=== PATIENT | male | born 1970 | race Caucasian/White ===

== ENCOUNTER 2018-05-10 22:56 | Emergency (ER) | payer OTHER ==
[~2018-05-10] VITALS: Ht 182.9 cm; Wt 90.7 kg
[2018-05-10 23:03] VITALS: BP 128/77
--- NOTE | 2018-05-10 23:55 | NUR ---
PT REFUSED ACI. PT AAXO4. NAD NOTED. AMBULATORY WITH STEADY GAIT.
[2018-05-10] MEDS: GUAIFENESIN/D-METHORPHAN HB 5 ML UDC PO ONE (23:56)
== END 2018-05-11 | disposition home or self-care (01) ==
LOC: EDBD → ER 23:10
DX: F10.129 Alcohol abuse with intoxication, unspecified (principal); R05 Cough; F31.9 Bipolar disorder, unspecified; F20.9 Schizophrenia, unspecified; Y90.9 Presence of alcohol in blood, level not specified
CPT/HCPCS: 71045-TC

== ENCOUNTER 2018-05-11 07:40 | Emergency (ER) | payer OTHER ==
[~2018-05-11] VITALS: Ht 175.3 cm; Wt 80.3 kg
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
--- NOTE | 2018-05-11 08:02 | NUR ---
POCT BLOOD SUGAR 89 FOOD TRAY CALLED FROM KITCH[facility]
--- NOTE | 2018-05-11 09:09 | NUR ---
PT REMAINS SOMBULENT UNABLE TO OPEN EYES BREATHING EVEN SATURATION 95% ON ROOM AIR VSS. WILL CONTINUE TO MONITOR
--- NOTE | 2018-05-11 09:54 | NUR ---
PT AWAKE SCREAMING UNABLE TO PULL PANTS DOWN TO URINATED PT HELPED WITH CLOTHING AND GIVEN URNAL. BREAKFAST AT BEDSIDE. PT INFORMED HE IS DISCHARGED
[2018-05-11 10:41] VITALS: BP 102/72
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
== END 2018-05-11 10:42 | disposition home or self-care (01) ==
LOC: ER 07:45
DX: E16.2 Hypoglycemia, unspecified (principal); F31.9 Bipolar disorder, unspecified; F20.9 Schizophrenia, unspecified; Z59.0 Homelessness
CPT/HCPCS: 82962-TC